=== PATIENT | male | born 1960 | race Caucasian/White ===

== ENCOUNTER 2019-04-13 16:11 | Inpatient (IN) | payer OTHER ==
[2019-04-13 16:31] LABS: ABNORMAL IP MESSAGE 1; HEMATOCRIT 44.2 % (42.0-52.0); HEMOGLOBIN 14.6 g/dl (14.0-18.0); MEAN CORPUSCULAR HEMOGLOBIN 27.3 pg (29.0-33.0); MEAN CORPUSCULAR VOLUME 82.6 fl (82.0-101.0); MEAN PLATELET VOLUME 9.8 fl (7.4-10.4); PLATELET COUNT 293 10^3/UL (140-415); POSITIVE DIFF @See below; RED BLOOD COUNT 5.35 10^6/ul (4.70-6.10); RED CELL DISTRIBUTION WIDTH 14.1 % (11.5-14.5)
[2019-04-13 16:31] LABS: WHITE BLOOD COUNT 22.2 10^3/ul (4.8-10.8)
[2019-04-13 16:39] LABS: ADD MAN DIFF? YES
[2019-04-13 16:49] LABS: ANION GAP 8 (5-13); BLOOD UREA NITROGEN 10 mg/dl (7-20); CALCIUM 9.4 mg/dl (8.4-10.2); CARBON DIOXIDE 27 mmol/L (21-31); CHLORIDE 107 mmol/L (97-110); CREATINE KINASE 183 IU/L (23-200); CREATININE 0.89 mg/dl (0.61-1.24); Estimated GFR > 60 mL/min (>60); GLUCOSE 104 mg/dl (70-220); POTASSIUM 3.7 mmol/L (3.5-5.1); SODIUM 142 mmol/L (135-144)
[2019-04-13 17:30] LABS: EOSINOPHILS % (M) 2 % (0-7); LYMPHOCYTES #M 15.3 10^3/ul (0.8-2.9); LYMPHOCYTES % (M) 69 % (15-51); MONOCYTE #M 1.5 10^3/ul (0.3-0.9); MONOCYTES % (M) 7 % (0-11); SEGMENTED NEUTROPHILS (M) % 22 % (39-77); SMUDGE%M 39 % (0-0)
[2019-04-13 17:39] LABS: URINE BLOOD (Dip) POC Trace-intact (NEGATIVE); URINE GLUCOSE (Dip) POC Negative (NEGATIVE); URINE KETONES (Dip) POC Negative (NEGATIVE); URINE LEUKOCYTE EST (Dip) POC Negative (NEGATIVE); URINE NITRITE (Dip) POC Negative (NEGATIVE); URINE TOTAL PROTEIN POC Negative (NEGATIVE)
[2019-04-13] MEDS: ASPIRIN 325 MG TAB PO (19:55)
[2019-04-14 06:27] LABS: ADD MAN DIFF? NO
[2019-04-14 06:36] LABS: WHITE BLOOD COUNT 21.3 10^3/ul (4.8-10.8)
[2019-04-14 06:36] LABS: ABNORMAL IP MESSAGE 1; BASOPHIL # 0.1 10^3/ul (0.0-0.1); BASOPHILS % 0.4 % (0.0-2.0); EOSINOPHILS # 0.5 10^3/ul (0.0-0.5); EOSINOPHILS % 2.2 % (0.0-7.0); HEMATOCRIT 44.7 % (42.0-52.0); HEMOGLOBIN 14.6 g/dl (14.0-18.0); LYMPHOCYTES # 12.3 10^3/ul (0.8-2.9); LYMPHOCYTES % 57.6 % (15.0-51.0); MEAN CORPUSCULAR HEMOGLOBIN 27.2 pg (29.0-33.0); MEAN CORPUSCULAR HGB CONC 32.7 g/dl (32.0-37.0); MEAN CORPUSCULAR VOLUME 83.2 fl (82.0-101.0); MEAN PLATELET VOLUME 9.4 fl (7.4-10.4); MONOCYTE # 0.8 10^3/ul (0.3-0.9); MONOCYTES % 3.7 % (0.0-11.0); NEUTROPHIL # 7.7 10^3/ul (1.6-7.5); NEUTROPHILS % 35.9 % (39.0-77.0); PLATELET COUNT 269 10^3/UL (140-415); POSITIVE DIFF @See below; RED BLOOD COUNT 5.37 10^6/ul (4.70-6.10); RED CELL DISTRIBUTION WIDTH 14.3 % (11.5-14.5)
[2019-04-14 06:58] LABS: CHOLESTEROL 153 mg/dl (100-200)
[2019-04-14 06:58] LABS: CHOL/HDL RATIO 4.3 RATIO; HDL CHOLESTEROL 35 mg/dl (30-78); LDL CHOLESTEROL,CALCULATED 87 mg/dl; TRIGLYCERIDES 155 mg/dl (0-149)
[2019-04-14 07:03] LABS: ALANINE AMINOTRANSFERASE 35 IU/L (13-69); ALBUMIN 3.7 g/dl (3.3-4.9); ALBUMIN/GLOBULIN RATIO 1.15; ALKALINE PHOSPHATASE 74 IU/L (42-121); ANION GAP 8 (5-13); ASPARTATE AMINO TRANSFERASE 26 IU/L (15-46); BILIRUBIN,INDIRECT 0.6 mg/dl (0-1.1); BILIRUBIN,TOTAL 0.6 mg/dl (0.2-1.3); BLOOD UREA NITROGEN 12 mg/dl (7-20); CALCIUM 8.8 mg/dl (8.4-10.2); CARBON DIOXIDE 26 mmol/L (21-31); CHLORIDE 109 mmol/L (97-110); Estimated GFR > 60 mL/min (>60); GLUCOSE 106 mg/dl (70-220); SODIUM 143 mmol/L (135-144); TOTAL PROTEIN 6.9 g/dl (6.1-8.1)
[2019-04-14] MEDS: ASPIRIN (EC) 325 MG TAB PO (09:32)
[2019-04-14] MEDS: IOHEXOL 100 ML (11:52)
[2019-04-14] MEDS: SOD CHLORIDE 0.9% 100 ML (11:52)
[2019-04-14] MEDS: SOD CHLORIDE 0.9% 1,000 ML IV ×2 (12:05→18:18)
[2019-04-14 13:18] LABS: ERYTHROCYTE SEDIMENTATION RATE 2 mm/Hr (0-20)
[2019-04-14 14:40] LABS: AMPHETAMINE/METHAMPHETAMINE Positive (NEGATIVE); BARBITURATES Negative (NEGATIVE); BENZODIAZEPINES Negative (NEGATIVE); CANNABINOIDS Negative (NEGATIVE); COCAINE Negative (NEGATIVE); OPIATES Negative (NEGATIVE)
[2019-04-14] MEDS: AMLODIPINE 5 MG TAB PO (18:08)
[2019-04-14] MEDS: ATORVASTATIN 40 MG TAB PO (21:17)
[2019-04-14 22:31] LABS: RAPID PLASMA REAGIN NONREACTIVE (NR)
[2019-04-15] MEDS: SOD CHLORIDE 0.9% 1,000 ML IV ×2 (02:16→10:29)
[2019-04-15 07:51] LABS: ADD MAN DIFF? NO
[2019-04-15 08:00] LABS: WHITE BLOOD COUNT 20.5 10^3/ul (4.8-10.8)
[2019-04-15 08:00] LABS: ABNORMAL IP MESSAGE 1; BASOPHIL # 0.1 10^3/ul (0.0-0.1); BASOPHILS % 0.3 % (0.0-2.0); EOSINOPHILS # 0.5 10^3/ul (0.0-0.5); EOSINOPHILS % 2.5 % (0.0-7.0); HEMATOCRIT 44.4 % (42.0-52.0); HEMOGLOBIN 14.7 g/dl (14.0-18.0); LYMPHOCYTES # 11.1 10^3/ul (0.8-2.9); MEAN CORPUSCULAR HEMOGLOBIN 27.6 pg (29.0-33.0); MEAN CORPUSCULAR HGB CONC 33.1 g/dl (32.0-37.0); MEAN CORPUSCULAR VOLUME 83.3 fl (82.0-101.0); MONOCYTE # 0.8 10^3/ul (0.3-0.9); MONOCYTES % 3.7 % (0.0-11.0); NEUTROPHIL # 8.1 10^3/ul (1.6-7.5); NEUTROPHILS % 39.4 % (39.0-77.0); PLATELET COUNT 266 10^3/UL (140-415); POSITIVE DIFF @See below; RED BLOOD COUNT 5.33 10^6/ul (4.70-6.10)
[2019-04-15] MEDS: AMLODIPINE 5 MG TAB PO (08:32)
[2019-04-15] MEDS: ASPIRIN (EC) 325 MG TAB PO (08:32)
[2019-04-15 08:33] LABS: ALANINE AMINOTRANSFERASE 23 IU/L (13-69); ALBUMIN 3.9 g/dl (3.3-4.9); ALKALINE PHOSPHATASE 80 IU/L (42-121); ANION GAP 7 (5-13); ASPARTATE AMINO TRANSFERASE 29 IU/L (15-46); BILIRUBIN,INDIRECT 0.7 mg/dl (0-1.1); BILIRUBIN,TOTAL 0.7 mg/dl (0.2-1.3); BLOOD UREA NITROGEN 10 mg/dl (7-20); CALCIUM 9.2 mg/dl (8.4-10.2); CARBON DIOXIDE 28 mmol/L (21-31); CHLORIDE 107 mmol/L (97-110); CREATININE 0.83 mg/dl (0.61-1.24); Estimated GFR > 60 mL/min (>60); GLUCOSE 109 mg/dl (70-220); SODIUM 142 mmol/L (135-144); TOTAL PROTEIN 6.9 g/dl (6.1-8.1)
[2019-04-15 08:36] LABS: PHOSPHORUS 3.7 mg/dl (2.5-4.9)
[2019-04-15 08:36] LABS: MAGNESIUM 2.1 mg/dl (1.7-2.5)
[2019-04-15 08:41] LABS: LYMPHOCYTES % 53.8 % (15.0-51.0)
[2019-04-15 10:46] LABS: ANISOCYTOSIS 1+ (0-0); BAND NEUTROPHILS #M 2.2 10^3/ul (0.0-0.6); BAND NEUTROPHILS % (M) 11 % (0-4); BASOPHIL #M 0.2 10^3/ul (0.0-0.0); BASOPHILS % (M) 1 % (0-2); LYMPHOCYTES #M 10.6 10^3/ul (0.8-2.9); LYMPHOCYTES % (M) 52 % (15-51); MICROCYTOSIS 1+ (0-0); MONOCYTE #M 0.8 10^3/ul (0.3-0.9); MONOCYTES % (M) 4 % (0-11); OVALOCYTES 2+ (0-0); PLATELET ESTIMATE NORMAL; POLYCHROMASIA 2+ (0-0); REACTIVE LYMPHOCYTES #M 1.4 10^3/ul (0.0-0.0); REACTIVE LYMPHOCYTES% (M) 7 % (0-0); SEG NEUT #M 5.6 10^3/ul (1.6-7.5); SEGMENTED NEUTROPHILS (M) % 25 % (39-77); SMUDGE%M 30 % (0-0)
[2019-04-15 11:08] LABS: INR 0.95; PROTIME 12.8 Sec (11.9-14.9)
[2019-04-15] MEDS: ATORVASTATIN 40 MG TAB PO (21:59)
[2019-04-15] MEDS: HEPARIN 5,000 UNIT/1 ML VIAL SC (22:09)
[2019-04-16 06:44] LABS: WHITE BLOOD COUNT 18.5 10^3/ul (4.8-10.8)
[2019-04-16 06:44] LABS: ABNORMAL IP MESSAGE 1; HEMATOCRIT 45.1 % (42.0-52.0); HEMOGLOBIN 14.8 g/dl (14.0-18.0); MEAN CORPUSCULAR HEMOGLOBIN 27.2 pg (29.0-33.0); MEAN CORPUSCULAR HGB CONC 32.8 g/dl (32.0-37.0); MEAN CORPUSCULAR VOLUME 82.9 fl (82.0-101.0); MEAN PLATELET VOLUME 9.9 fl (7.4-10.4); PLATELET COUNT 263 10^3/UL (140-415); POSITIVE DIFF @See below; RED BLOOD COUNT 5.44 10^6/ul (4.70-6.10); RED CELL DISTRIBUTION WIDTH 13.7 % (11.5-14.5)
[2019-04-16 06:46] LABS: ADD MAN DIFF? YES
[2019-04-16 07:20] LABS: PHOSPHORUS 3.8 mg/dl (2.5-4.9)
[2019-04-16 07:20] LABS: MAGNESIUM 2.1 mg/dl (1.7-2.5)
[2019-04-16 07:22] LABS: ALANINE AMINOTRANSFERASE 27 IU/L (13-69); ALBUMIN 3.9 g/dl (3.3-4.9); ALKALINE PHOSPHATASE 99 IU/L (42-121); ANION GAP 6 (5-13); ASPARTATE AMINO TRANSFERASE 27 IU/L (15-46); BILIRUBIN,INDIRECT 0.4 mg/dl (0-1.1); BILIRUBIN,TOTAL 0.4 mg/dl (0.2-1.3); BLOOD UREA NITROGEN 12 mg/dl (7-20); CALCIUM 9.4 mg/dl (8.4-10.2); CARBON DIOXIDE 27 mmol/L (21-31); CHLORIDE 108 mmol/L (97-110); CREATININE 0.85 mg/dl (0.61-1.24); Estimated GFR > 60 mL/min (>60); GLUCOSE 118 mg/dl (70-220); SODIUM 141 mmol/L (135-144); TOTAL PROTEIN 6.9 g/dl (6.1-8.1)
[2019-04-16] MEDS: ASPIRIN (EC) 325 MG TAB PO (08:56)
[2019-04-16] MEDS: AMLODIPINE 5 MG TAB PO (08:56)
[2019-04-16] MEDS: HEPARIN 5,000 UNIT/1 ML VIAL SC ×2 (09:15→21:53)
[2019-04-16 10:42] LABS: BAND NEUTROPHILS #M 0.9 10^3/ul (0.0-0.6); BAND NEUTROPHILS % (M) 5 % (0-4); BASOPHIL #M 0.1 10^3/ul (0.0-0.0); BASOPHILS % (M) 1 % (0-2); EOSINOPHILS % (M) 10 % (0-7); GIANT THROMBO% (M) 3 % (0-0); LYMPHOCYTES #M 8.3 10^3/ul (0.8-2.9); LYMPHOCYTES % (M) 45 % (15-51); MONOCYTE #M 0.9 10^3/ul (0.3-0.9); MONOCYTES % (M) 5 % (0-11); PLATELET ESTIMATE NORMAL; REACTIVE LYMPHOCYTES #M 0.5 10^3/ul (0.0-0.0); REACTIVE LYMPHOCYTES% (M) 3 % (0-0); SEG NEUT #M 5.9 10^3/ul (1.6-7.5); SEGMENTED NEUTROPHILS (M) % 31 % (39-77); SMUDGE%M 55 % (0-0)
[2019-04-16] MEDS: ATORVASTATIN 40 MG TAB PO (21:41)
[2019-04-17] MEDS: BENZONATATE 100 MG CAP PO ×4 (02:13→20:52)
[2019-04-17] MEDS: AMLODIPINE 5 MG TAB PO (08:38)
[2019-04-17] MEDS: ASPIRIN (EC) 325 MG TAB PO (08:38)
[2019-04-17] MEDS: HEPARIN 5,000 UNIT/1 ML VIAL SC ×2 (09:26→20:49)
[2019-04-17] MEDS: ATORVASTATIN 40 MG TAB PO (20:41)
[2019-04-18] MEDS: BENZONATATE 100 MG CAP PO (07:07)
[2019-04-18] MEDS: ASPIRIN (EC) 325 MG TAB PO (08:19)
[2019-04-18] MEDS: AMLODIPINE 5 MG TAB PO (08:20)
[2019-04-18] MEDS: HEPARIN 5,000 UNIT/1 ML VIAL SC (08:33)
[2019-04-18] MEDS: SOD CHLORIDE 0.9% 100 ML ×2 (13:23→13:24)
[2019-04-18] MEDS: IOHEXOL 100 ML ×2 (13:24)
== END 2019-04-18 15:28 | disposition home health service (06) | DRG 66 ==
LOC: TEL 19:22 → E/R 16:11 → TEL 04-14 20:15
DX: I63.9 Cerebral infarction, unspecified (principal); I65.02 Occlusion and stenosis of left vertebral artery; R27.8 Other lack of coordination; D72.829 Elevated white blood cell count, unspecified; Z87.891 Personal history of nicotine dependence; Z79.82 Long term (current) use of aspirin
CPT/HCPCS: 36415; 70450; 70496; 70498; 70544; 70549; 70551; 71045; 71046; 71250; 74176; 80048; 80053; 80061; 80307; 81003; 82550; 83036; 83735; 84100; 84443; 85025; 85610; 85651; 86592; 87040-91; 87086; 92610; 93005; 93306; 97110; 97116; 97163; 97530; 99285-25